=== PATIENT | male | born 1940 | race Hispanic/Latino ===

== ENCOUNTER 2018-10-05 09:09 | Emergency (ER) | payer OTHER, MEDICARE ==
[~2018-10-05 09:09] MED LIST: ALLO100T PO; CLON0.5T12 PO; CLOP75TA14 PO; FERS325 PO; INSU100I21 SQ; ISOS30TA6 PO; LACT10SO9 PO; MEGE400O PO; METO25TA6 PO; NITR0.4T50 SL; ROSU10TA PO; SERT25TA5 PO; SIME180C46 PO; TAMS0.4C32 PO; TERA5CAP4 PO; TERB12CR3 TP; TRAM-355 PO
[2018-10-05 09:32] LABS: BASOPHILS % (AUTO) 0.5 % (0.0-5.0); EOSINOPHILS % (AUTO) 1.6 % (0.0-8.0); HEMATOCRIT 32.4 % (42-54); LYMPHOCYTES % (AUTO) 7.9 % (21.0-51.0); MEAN CORPUSCULAR HEMOGLOBIN 29.3 pg (27.0-33.0); MEAN CORPUSCULAR HGB CONC 34.4 g/dL (32.0-36.0); MEAN CORPUSCULAR VOLUME 85.4 fL (79-99); PLATELET COUNT (AUTO) 191 K/uL (130-400); RED CELL DISTRIBUTION WIDTH 15.3 % (11.0-15.5); WHITE BLOOD COUNT (AUTO) 8.6 K/uL (4.8-10.8)
[2018-10-05 09:45] LABS: POTASSIUM 4.8 mmol/L (3.5-5.1)
[2018-10-05 09:46] LABS: CREATININE 8.1 mg/dL (0.5-1.5)
== END 2018-10-05 10:33 | disposition home or self-care (01) ==
LOC: EDH 09:09
DX: I12.0 Hypertensive chronic kidney disease with stage 5 chronic kidney disease or end stage renal disease (principal); E11.22 Type 2 diabetes mellitus with diabetic chronic kidney disease; N18.6 End stage renal disease; R06.02 Shortness of breath; E78.5 Hyperlipidemia, unspecified; Z99.2 Dependence on renal dialysis; Z90.49 Acquired absence of other specified parts of digestive tract; Z98.890 Other specified postprocedural states
CPT/HCPCS: 36415; 71045; 80048; 85025; 93005

== ENCOUNTER 2019-01-04 12:12 | Inpatient (IN) | payer OTHER, MEDICARE ==
[~2019-01-04] VITALS: Ht 165.1 cm; Wt 61.3 kg
[2019-01-04] MEDS ORDERED: IBUPROFEN 100 MG/5 ML SUSP UDCUP ONE (12:30)
[2019-01-04 12:37] LABS: BASOPHILS % (AUTO) 0.5 % (0.0-5.0); EOSINOPHILS % (AUTO) 1.7 % (0.0-8.0); HEMATOCRIT 35.7 % (42-54); LYMPHOCYTES % (AUTO) 16.9 % (21.0-51.0); MEAN CORPUSCULAR HEMOGLOBIN 29.4 pg (27.0-33.0); MEAN CORPUSCULAR VOLUME 86.6 fL (79-99); NEUTROPHILS % (AUTO) 74.9 % (40.0-77.0); PLATELET COUNT (AUTO) 245 K/uL (130-400); RED BLOOD CELL COUNT(AUTO) 4.12 MIL/uL (4.50-6.20); WHITE BLOOD COUNT (AUTO) 5.5 K/uL (4.8-10.8)
[2019-01-04 12:45] LABS: CREATININE 7.8 mg/dL (0.5-1.5); POTASSIUM 5.9 mmol/L (3.5-5.1)
[2019-01-04 12:50] LABS: ALBUMIN 4.5 g/dL (3.5-5.0); BILIRUBIN,TOTAL 0.6 mg/dL (0.2-1.0); TOTAL PROTEIN, SERUM 8.3 g/dL (6.0-8.3)
[2019-01-04 19:12] LABS: HEMOGLOBIN A1C 7.5 % (4.0-6.0); MAGNESIUM 2.3 mg/dL (1.80-2.40); PHOSPHORUS 5.9 mg/dL (2.5-4.9)
[2019-01-04] MEDS ORDERED: DEXTROSE 50%-WATER 50 ML DISP.SYRIN IV PRN (19:45)
[2019-01-04] MEDS ORDERED: ONDANSETRON HCL 4 MG/2 ML VIAL IV PRN (19:45)
[2019-01-04] MEDS ORDERED: ACETAMINOPHEN 325 MG TAB PO PRN ×2 (19:45)
[2019-01-04] MEDS ORDERED: GLUCAGON 1MG KIT 1 MG ML IM PRN (19:45)
[2019-01-04] MEDS ORDERED: SODIUM POLYSTYRENE SULFONATE 15 GM/60 ML ML PO STA (20:06)
[2019-01-05 05:27] LABS: BASOPHILS % (AUTO) 0.6 % (0.0-5.0); EOSINOPHILS % (AUTO) 3.3 % (0.0-8.0); HEMATOCRIT 34.8 % (42-54); LYMPHOCYTES % (AUTO) 17.1 % (21.0-51.0); MEAN CORPUSCULAR HEMOGLOBIN 29.6 pg (27.0-33.0); MEAN CORPUSCULAR HGB CONC 34.3 g/dL (32.0-36.0); MEAN CORPUSCULAR VOLUME 86.2 fL (79-99); MONOCYTES % (AUTO) 6.3 % (3.0-13.0); NEUTROPHILS % (AUTO) 72.7 % (40.0-77.0); PLATELET COUNT (AUTO) 267 K/uL (130-400); RED BLOOD CELL COUNT(AUTO) 4.03 MIL/uL (4.50-6.20)
[2019-01-05 05:28] LABS: APPEARANCE,URINE Clear (CLEAR); BILIRUBIN,URINE Negative (NEGATIVE); COLOR,URINE Yellow (YELLOW); GLUCOSE, URINE (UA) 250 mg/dL (NEGATIVE); KETONES,URINE Negative (NEGATIVE); LEUKOCYTE ESTERASE ,URINE Trace (NEGATIVE); NITRATE,URINE Negative (NEGATIVE); OCCULT BLOOD,URINE Trace (NEGATIVE); PH,URINE >=9.0 (5.0-8.0); PROTEIN,URINE 300 (NEGATIVE); UROBILINOGEN,URINE 0.2 mg/dL (0.2-1.0)
[2019-01-05 05:36] LABS: AMPHET/METH SCREEN,URINE NEGATIVE (NEGATIVE); BARBITURATE SCREEN, URINE NEGATIVE (NEGATIVE); BENZODIAZEPINES SCREEN,URINE NEGATIVE (NEGATIVE); CANNABINOID SCREEN,URINE NEGATIVE (NEGATIVE); COCAINE SCREEN,URINE NEGATIVE (NEGATIVE); OPIATE SCREEN,URINE NEGATIVE (NEGATIVE); PHENCYCLIDINE SCREEN,URINE NEGATIVE (NEGATIVE)
[2019-01-05 05:40] LABS: BACTERIA,URINE None Seen /HPF (None Seen); MUCUS,URINE Rare LPF (None Seen); RBC,URINE 0-1 /HPF (0-1); SQUAMOUS EPITHELIAL CELL,UR Rare /HPF (0-2); WBC,URINE 0-1 /HPF (0-1)
[2019-01-05 05:57] LABS: ALBUMIN 3.9 g/dL (3.5-5.0); BILIRUBIN,TOTAL 0.7 mg/dL (0.2-1.0); MAGNESIUM 2.2 mg/dL (1.80-2.40); PHOSPHORUS 6.4 mg/dL (2.5-4.9); POTASSIUM 5.8 mmol/L (3.5-5.1); TOTAL PROTEIN, SERUM 7.5 g/dL (6.0-8.3)
[2019-01-05 06:07] LABS: CREATININE 9.1 mg/dL (0.5-1.5)
[2019-01-05] MEDS ORDERED: ENOXAPARIN SODIUM 30 MG/0.3 ML SQ ONE (08:52)
[2019-01-05] MEDS ORDERED: FAMOTIDINE 20MG TAB 20 MG TAB ONE (08:52)
[2019-01-05] MEDS: FAMOTIDINE 20MG TAB 20 MG TAB PO SCH (09:00)
[2019-01-05] MEDS: ENOXAPARIN SODIUM 30 MG/0.3 ML SQ SCH (09:00)
[2019-01-05] MEDS ORDERED: LACTULOSE 20 GM/30 ML UDCUP PO PRN (09:45)
[2019-01-05] MEDS: MEGESTROL 400 MG/10 ML UDCUP PO SCH (10:56)
--- NOTE | 2019-01-05 11:23 | NUR ---
PATIENT PAULA HISTORIAN,ATTEMPTED TO COLLECT INFORMATION FROM PATIENT, HE DOES NOT REMEMBER ANY OF HIS MEDICAL HISTORY. CALLED PATIENTS SISTER SPOKE TO EDENILSON BLANCO STATES SHE WILL BRING PATIENT MEDICATION AND ASSIST WITH PATIENTS HISTORY.
[2019-01-05] MEDS: SEVELAMER HCL 800 MG TABLET PO SCH ×2 (12:00→17:17)
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
[2019-01-05 14:15] VITALS: BP 128/72
[2019-01-05 16:00] VITALS: BP 108/60
[2019-01-05] MEDS: INSULIN HUMULIN R 100 UNIT/ML 3ML SQ SCH ×2 (17:21→20:35)
[2019-01-05 19:45] VITALS: BP 101/54
[2019-01-05] MEDS: TAMSULOSIN HCL 0.4 MG CAP.ER.24H PO SCH (20:35)
[2019-01-05] MEDS: METOPROLOL TARTRATE 25 MG TAB PO SCH (20:35)
[2019-01-06] MEDS ORDERED: NITROGLYCERIN 0.4 MG SL TAB SL PRN (01:00)
--- NOTE | 2019-01-06 01:00 | NUR ---
CHEST PAIN PT C/O CHEST PAIN. INFORMED TAD, ASSOCIATE SOFTWARE DEVELOPMENT ENGINEER OF CHEST PAIN AND VITALS 87/43, HR 72. ORDERED EKG AND CARDIACE ENZYMES
[2019-01-06 01:20] LABS: HEMATOCRIT 36.2 % (42-54); MEAN CORPUSCULAR HEMOGLOBIN 29.1 pg (27.0-33.0); MEAN CORPUSCULAR HGB CONC 33.6 g/dL (32.0-36.0); MEAN CORPUSCULAR VOLUME 86.6 fL (79-99); NUCLEATED RED BLOOD CELLS 0.2 % (0.0-0.19); PLATELET COUNT (AUTO) 264 K/uL (130-400); RED BLOOD CELL COUNT(AUTO) 4.18 MIL/uL (4.50-6.20); RED CELL DISTRIBUTION WIDTH 16.1 % (11.0-15.5); WHITE BLOOD COUNT (AUTO) 5.7 K/uL (4.8-10.8)
[2019-01-06 01:54] LABS: CARBON DIOXIDE 30 mmol/L (21-32); CHLORIDE 95 mmol/L (101-111); CREATININE 7.1 mg/dL (0.5-1.5); GLOMERULAR FILTR. RATE CALC 8 mL/min (>60); GLUCOSE,RANDOM 159 mg/dL (70-105); MYOGLOBIN 1245 ng/mL (10-92); PHOSPHORUS 5.6 mg/dL (2.5-4.9); POTASSIUM 3.9 mmol/L (3.5-5.1); SODIUM SERUM 139 mmol/L (136-145); TROPONIN I < 0.04 ng/mL (0.00-0.06); UREA NITROGEN, BLOOD 41 mg/dL (7-18)
[2019-01-06 01:57] LABS: CREATINE KINASE, TOTAL 486 U/L (21-232)
[2019-01-06 02:08] LABS: EOSINOPHILS % (MANUAL) 3 % (1-6); LYMPHOCYTES % (MANUAL) 29 % (22-44); MAN.DIFF COMMENT-IMPRESSION MANUAL DIFFERENTIAL; MONOCYTES % (MANUAL) 8 % (2-9); SEGMENTED NEUTROPHILS % 60 % (40-70)
[2019-01-06 05:00] VITALS: BP 123/75
[2019-01-06] MEDS: INSULIN HUMULIN R 100 UNIT/ML 3ML SQ SCH ×4 (06:55→21:00)
[2019-01-06] MEDS: MEGESTROL 400 MG/10 ML UDCUP PO SCH (10:11)
[2019-01-06] MEDS: ALLOPURINOL 100 MG TABLET PO SCH (10:12)
[2019-01-06] MEDS: SEVELAMER HCL 800 MG TABLET PO SCH ×3 (10:13→16:17)
[2019-01-06] MEDS: METOPROLOL TARTRATE 25 MG TAB PO SCH ×2 (10:13→21:36)
[2019-01-06] MEDS: CLOPIDOGREL BISULFATE 75 MG TAB PO SCH (10:13)
[2019-01-06] MEDS: FAMOTIDINE 20MG TAB 20 MG TAB PO SCH (10:13)
[2019-01-06] MEDS: SERTRALINE HCL 50 MG TABLET PO SCH (10:14)
[2019-01-06] MEDS: ENOXAPARIN SODIUM 30 MG/0.3 ML SQ SCH (10:18)
[2019-01-06 12:00] VITALS: BP 96/53
--- NOTE | 2019-01-06 15:39 | NUR ---
CM Note: Declined SNF placement CM met with pt and sister, discussed MD pineda for short term placement rehab, pt ambulated does not qualify for rehab. Pt declined placement, stated wants to go home, he needs to go to dialysis every MWF. As per sister daughter(pt hilda) will assist with transportation once pt stable. Primary nurse aware. CM to cont to follow up.
--- NOTE | 2019-01-06 15:41 | NUR ---
CM Note: Spoke to pt spouse CM called spouse on facesheet Marifer Singh , discussed recs for short term rehab, aware pt does not qualify for short term rehab for now pt ambulates independently. As per spouse she is in [place] now and with pt spouse stated, "I'm not going back to home, I don't want anything to do with him." Informed spouse she is the closest next of kin, will need to make decisions. Spouse declined to make decision, stated "he can do whatever he wants to do." Primary nurse aware. CM to cont to follow up.
[2019-01-06 16:00] VITALS: BP 97/59
--- NOTE | 2019-01-06 16:24 | NUR ---
RD Notification Patient tolerating 75gm CCD with no report of GI distress and PO intake at 100%. Rec to add Renal Dialysis Diet modifier secondary to ESRD. Patient LBM 01/06/19. Patient monitored labs: Glu 172, Cl 95, BUN 41, Cr 7.1, GFR 8, P 5.6, TCK 486, Alb 3.9. RD to continue to monitor. Please notify RD as nutritional concerns arise. Thank you.
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
[2019-01-06 19:40] VITALS: BP 128/72
[2019-01-06] MEDS: TAMSULOSIN HCL 0.4 MG CAP.ER.24H PO SCH (21:36)
[2019-01-06 23:38] VITALS: BP 112/68
[2019-01-07 04:54] LABS: BASOPHILS % (AUTO) 0.6 % (0.0-5.0); EOSINOPHILS % (AUTO) 2.6 % (0.0-8.0); HEMATOCRIT 33.2 % (42-54); LYMPHOCYTES % (AUTO) 27.9 % (21.0-51.0); MEAN CORPUSCULAR HEMOGLOBIN 29.6 pg (27.0-33.0); MEAN CORPUSCULAR HGB CONC 34.3 g/dL (32.0-36.0); MEAN CORPUSCULAR VOLUME 86.1 fL (79-99); MONOCYTES % (AUTO) 9.5 % (3.0-13.0); NEUTROPHILS % (AUTO) 59.4 % (40.0-77.0); NUCLEATED RED BLOOD CELLS 0.1 % (0.0-0.19); PLATELET COUNT (AUTO) 262 K/uL (130-400); RED BLOOD CELL COUNT(AUTO) 3.85 MIL/uL (4.50-6.20); WHITE BLOOD COUNT (AUTO) 4.8 K/uL (4.8-10.8)
[2019-01-07 05:00] VITALS: BP 101/64
[2019-01-07 05:04] LABS: POTASSIUM 4.6 mmol/L (3.5-5.1)
[2019-01-07 05:08] LABS: CREATININE 9.9 mg/dL (0.5-1.5)
[2019-01-07] MEDS: INSULIN HUMULIN R 100 UNIT/ML 3ML SQ SCH ×4 (05:24→21:00)
[2019-01-07 07:30] VITALS: BP 123/63
[2019-01-07] MEDS: SEVELAMER HCL 800 MG TABLET PO SCH ×3 (08:00→16:09)
[2019-01-07] MEDS: CLOPIDOGREL BISULFATE 75 MG TAB PO SCH (09:00)
[2019-01-07] MEDS: METOPROLOL TARTRATE 25 MG TAB PO SCH ×2 (09:00→22:12)
--- NOTE | 2019-01-07 10:10 | NUR ---
MMSE Sw met with pt who was awake and alert, waiting for dialysis treatment to be set up in room. Sw attempted to complete a MMSE on pt. Pt has a second grade education and is extremely hard of hearing. Pt states he has been her 3 weeks and is not sure of date, year or month. was able to tell that he was at the hospital in [place] in room 315. and was not able to spell word asked, he was able to repeat 2 or 3 words that were asked of him. Pt was not able to complete any of tasks asked of him. Pt did tell me that he needed me to get him a new provider. When I asked about Marifer Singh, pt admitted that she lived with him and assisted him with ADLS and home management. Pt denied that he ran her out of the house. Pt states he will be going to sister's house in [place] at discharge
[2019-01-07] MEDS: SERTRALINE HCL 50 MG TABLET PO SCH (10:19)
[2019-01-07] MEDS: ALLOPURINOL 100 MG TABLET PO SCH (10:19)
[2019-01-07] MEDS: FAMOTIDINE 20MG TAB 20 MG TAB PO SCH (10:19)
[2019-01-07] MEDS: MEGESTROL 400 MG/10 ML UDCUP PO SCH (10:19)
[2019-01-07] MEDS: ENOXAPARIN SODIUM 30 MG/0.3 ML SQ SCH (10:24)
[2019-01-07 11:00] VITALS: BP 126/63
--- NOTE | 2019-01-07 12:16 | NUR ---
PER ADMISSION DATABASE, PT HAS ALREADY REC'D FLU SHOT THIS SEASON. Addendum: 01/07/19 at 1218 by RADHA PA RN RN Amended: Links added. Addendum: 01/07/19 at 1318 by RADHA PA RN RN DISCHARGE INTERVENTIONS COMPLETED. ENDORSED TO PRIMARY NURSE GILMAR FOR COMPLETION OF DISCHARGE EDUCATION AND REMOVAL OF PIV
[2019-01-07 16:00] VITALS: BP 100/60
--- NOTE | 2019-01-07 19:00 | NUR ---
FAMILY AT BEDSIDE REFUSING TO TAKE PT HOME. PATIENT DISCHARGED INSTRUCTIONS GIVEN AND SIGNED. FAMILY STATE WE SHOULD SENT HIM TO NURSING, THEY STATE PATIENT IS NOT ALERT AND ORIENTED TO GO HOME ON HIS OWN AND THAT HE WILL . THEY DID NOT WANT TO DISCLOSE THEIR NAMES, THEY PROVIDED A LIST OF CONTACT INFO. SON'S PHONE NUMBER WHO THEY THINK WE SHOULD TALK TO. UCHE BLANCO; [phone] MARY BLANCO; [phone] THEY STATED "JUST CALL CPS ON THE HIM AND WE ARE LEAVING" PATIENT IN WHEELCHAIR. FAMILY AT BEDSIDE WAS INFORMED THAT PATIENT AND CLOSE FAMILY REFUSING TO SEND HIM TO JAIL.
--- NOTE | 2019-01-07 19:30 | NUR ---
LURDES BECERRIL AWARE OF FAMILY DILEMMA
--- NOTE | 2019-01-07 19:50 | NUR ---
Received report from dayshift nurse,pt was supposed to be discharged home,IV was taken out and papers were all signed,apparently family refused to take him home so pt is staying.
[2019-01-07 20:00] VITALS: BP 100/64
--- NOTE | 2019-01-07 20:10 | NUR ---
Pt. agreed to stay however refused to have IV insertion.Pt. is awake and coherent denies any discomfort at this time.
--- NOTE | 2019-01-07 22:00 | NUR ---
received call from son and informed pt is still here and nobody is going to take care of him at home.He said he should be the one to be called and decide where his father is going ,he prefers he goes to the nursing facility.Informed him things will be decided tomorrow since case mgt is already notified and made aware .
[2019-01-07] MEDS: TAMSULOSIN HCL 0.4 MG CAP.ER.24H PO SCH (22:12)
[2019-01-08] VITALS: BP 119/71
[2019-01-08 04:00] VITALS: BP 123/74
[2019-01-08 05:04] LABS: BASOPHILS % (AUTO) 0.5 % (0.0-5.0); EOSINOPHILS % (AUTO) 1.6 % (0.0-8.0); HEMATOCRIT 36.3 % (42-54); LYMPHOCYTES % (AUTO) 24.8 % (21.0-51.0); MEAN CORPUSCULAR HEMOGLOBIN 29.6 pg (27.0-33.0); MEAN CORPUSCULAR HGB CONC 34.2 g/dL (32.0-36.0); MEAN CORPUSCULAR VOLUME 86.5 fL (79-99); NEUTROPHILS % (AUTO) 62.1 % (40.0-77.0); PLATELET COUNT (AUTO) 257 K/uL (130-400); RED CELL DISTRIBUTION WIDTH 15.8 % (11.0-15.5); WHITE BLOOD COUNT (AUTO) 4.7 K/uL (4.8-10.8)
[2019-01-08 05:17] LABS: CREATININE 7.1 mg/dL (0.5-1.5); POTASSIUM 4.2 mmol/L (3.5-5.1)
[2019-01-08] MEDS: INSULIN HUMULIN R 100 UNIT/ML 3ML SQ SCH ×2 (06:13→12:55)
[2019-01-08 08:00] VITALS: BP 122/71
[2019-01-08] MEDS: METOPROLOL TARTRATE 25 MG TAB PO SCH (09:27)
[2019-01-08] MEDS: SERTRALINE HCL 50 MG TABLET PO SCH (09:27)
[2019-01-08] MEDS: CLOPIDOGREL BISULFATE 75 MG TAB PO SCH (09:27)
[2019-01-08] MEDS: ALLOPURINOL 100 MG TABLET PO SCH (09:27)
[2019-01-08] MEDS: SEVELAMER HCL 800 MG TABLET PO SCH ×2 (09:27→12:54)
[2019-01-08] MEDS: FAMOTIDINE 20MG TAB 20 MG TAB PO SCH (09:27)
[2019-01-08] MEDS: MEGESTROL 400 MG/10 ML UDCUP PO SCH (09:28)
[2019-01-08] MEDS: ENOXAPARIN SODIUM 30 MG/0.3 ML SQ SCH (09:32)
--- NOTE | 2019-01-08 11:00 | NUR ---
DC In earlier to speak w pt again regarding poss SNF, he is up walking in the room independently. Pt refuses stating that he is going home at dc. Primary nurse present in room at this time. Addendum: 01/08/19 at 1703 by LANA HUERTA CM While in patients room, pt called dtr Lorenza @ [phone], CM was able to speak w her to discuss dc order written by yesterday. Per Lorenza, none of the family members want to be involved w pt. Lorenza mentions that she is out of town and unable to assist. Informed Lorenza that pt has not been deemed incompetent and is able to refuse SNF placement. Lorenza was informed that pt had been cleared for discharge since yesterday by . Per Lorenza there is no one avail to come pick pt up. She was informed that in the past if patients do not have transport they can be sent home by taxi. She mentions that this would have to be the way pt gets home. Discussed w pt Area Aging, states ex was his provider, informed would need to try and obtain new provider if she no longer was going to assist him.
[2019-01-08 12:00] VITALS: BP 104/57
--- NOTE | 2019-01-08 13:30 | NUR ---
STRUCTURAL ENGINEERING TECHNICIAN NOTIFIED TO CONTACT TAXI TO TRANSPORT PATIENT HOME. PATIENT STATES HE WANTS TO GO HOME AND NO JAIL HOME. FAMILY MEMBERS NOTIFIED BY ORE SAMPLER LANA ECHEVARRIA. DISCHARGE PAPERS GIVEN TO PATIENT and to follow UP WITH NEPHROLOGY ON THURSDAY FOR DIALYSIS. ALL QUESTIONS ANSWERED. PATIENT WITHOUT IV AT THIS TIME.
--- NOTE | 2019-01-08 16:45 | NUR ---
APS: Called placed to APS Hotline, spoke gutierrez Rico ID [id number], . Informed regarding pt refusing SNF @ dc and family refusing to assist him at dc. see previous notes.
== END 2019-01-08 13:19 | disposition home or self-care (01) | DRG 70 ==
LOC: EDH 12:12 → EDHIP 18:42 → 3CH 01-05 14:10
PROVIDERS: ADMIT Internal Medicine; ATTEND Internal Medicine
PROC: 5A1D70Z Performance of Urinary Filtration, Intermittent, Less than 6 Hours Per Day (ICD-10-PCS; principal; 2019-01-05)
PROC: 5A1D70Z Performance of Urinary Filtration, Intermittent, Less than 6 Hours Per Day (ICD-10-PCS; 2019-01-07)
DX: G93.49 Other encephalopathy (principal); N18.6 End stage renal disease; N17.9 Acute kidney failure, unspecified; I12.0 Hypertensive chronic kidney disease with stage 5 chronic kidney disease or end stage renal disease; G93.41 Metabolic encephalopathy; E87.5 Hyperkalemia; F03.90 Unspecified dementia, unspecified severity, without behavioral disturbance, psychotic disturbance, mood disturbance, and anxiety; N40.0 Benign prostatic hyperplasia without lower urinary tract symptoms; E78.00 Pure hypercholesterolemia, unspecified; E11.22 Type 2 diabetes mellitus with diabetic chronic kidney disease; E11.21 Type 2 diabetes mellitus with diabetic nephropathy; H91.90 Unspecified hearing loss, unspecified ear; E78.5 Hyperlipidemia, unspecified; D64.9 Anemia, unspecified; I25.10 Atherosclerotic heart disease of native coronary artery without angina pectoris; Z99.2 Dependence on renal dialysis; Z83.3 Family history of diabetes mellitus; Z82.5 Family history of asthma and other chronic lower respiratory diseases; Z82.0 Family history of epilepsy and other diseases of the nervous system; Z82.49 Family history of ischemic heart disease and other diseases of the circulatory system; Z90.49 Acquired absence of other specified parts of digestive tract; Z91.19 Patient's noncompliance with other medical treatment and regimen; Z82.3 Family history of stroke; Z91.15 Patient's noncompliance with renal dialysis
CPT/HCPCS: 36415; 70450; 71045; 80048; 80053; 80305; 81001; 82140; 82550; 82948; 83036; 83735; 83874; 84100; 84484; 85025; 90935; 93005; G0378; G0480; J1650; J1815

== ENCOUNTER 2019-01-21 10:30 | Inpatient (IN) | payer OTHER, MEDICARE ==
[~2019-01-21] VITALS: Ht 160 cm; Wt 56.4 kg
[~2019-01-21 10:30] MED LIST changes: -ROSU10TA PO; +ROSU10TA22 PO
[2019-01-21 11:27] LABS: BASOPHILS % (AUTO) 0.5 % (0.0-5.0); EOSINOPHILS % (AUTO) 2.2 % (0.0-8.0); HEMATOCRIT 34.1 % (42-54); LYMPHOCYTES % (AUTO) 21.9 % (21.0-51.0); MEAN CORPUSCULAR HEMOGLOBIN 29.6 pg (27.0-33.0); MEAN CORPUSCULAR VOLUME 87.3 fL (79-99); MONOCYTES % (AUTO) 5.9 % (3.0-13.0); NEUTROPHILS % (AUTO) 69.5 % (40.0-77.0); NUCLEATED RED BLOOD CELLS 0.1 % (0.0-0.19); PLATELET COUNT (AUTO) 201 K/uL (130-400); RED BLOOD CELL COUNT(AUTO) 3.91 MIL/uL (4.50-6.20); WHITE BLOOD COUNT (AUTO) 3.6 K/uL (4.8-10.8)
[2019-01-21 11:40] LABS: AMMONIA 17 umol/L (11-32); CREATINE KINASE, TOTAL 130 U/L (21-232)
[2019-01-21 11:41] LABS: ALBUMIN 3.4 g/dL (3.5-5.0); BILIRUBIN,TOTAL 1.3 mg/dL (0.2-1.0); POTASSIUM 5.5 mmol/L (3.5-5.1); TOTAL PROTEIN, SERUM 6.8 g/dL (6.0-8.3)
[2019-01-21 11:46] LABS: INR 0.97 (0.85-1.15); PARTIAL THROMBOPLASTIN TIME 27.8 SEC (26.3-35.5); PROTHROMBIN TIME 10.2 SEC (9.6-11.6)
[2019-01-21 11:49] LABS: CREATININE 14.2 mg/dL (0.5-1.5)
[2019-01-21] MEDS ORDERED: SODIUM POLYSTYRENE SULFONATE 15 GM/60 ML ML ONE (12:31)
[2019-01-21] MEDS ORDERED: HYDRALAZINE HCL 20 MG/ML VIAL IV PRN (14:45)
[2019-01-21] MEDS ORDERED: ONDANSETRON HCL 4 MG/2 ML VIAL IV PRN (14:45)
[2019-01-21] MEDS ORDERED: ACETAMINOPHEN 325 MG TAB PO PRN ×2 (14:45→20:00)
[2019-01-21] MEDS ORDERED: MORPHINE SULFATE 2 MG/ML 1ML SYG IV PRN (14:45)
[2019-01-21] MEDS ORDERED: LEVOFLOXACIN 500 MG/D5W 100 ML 100 ML IV ONE (15:00)
[2019-01-21] MEDS ORDERED: RENAL DOSE IV SCH (15:15)
[2019-01-21 15:24] LABS: HEMOGLOBIN A1C 7.6 % (4.0-6.0)
[2019-01-21 15:35] VITALS: BP 117/71
[2019-01-21] MEDS: INSULIN HUMULIN R 100 UNIT/ML 3ML SQ SCH ×2 (16:30→21:00)
[2019-01-21] MEDS ORDERED: LIDOCAINE HCL 2% JELLY 5 ML TP SCH (16:30)
[2019-01-21] MEDS ORDERED: TRAZ-187 PO (16:32)
[2019-01-21] MEDS ORDERED: DONE10TA36 PO (16:32)
[2019-01-21] MEDS ORDERED: SOLI5 PO (16:36)
[2019-01-21] MEDS ORDERED: NAPR-1180 PO (16:40)
[2019-01-21] MEDS ORDERED: LINA145C PO (16:40)
[2019-01-21] MEDS ORDERED: LIDOCAINE/PRILOCAINE CREAM 5GM TUBE TP SCH (18:47)
[2019-01-21 19:55] VITALS: BP 112/70
[2019-01-21] MEDS ORDERED: NITROGLYCERIN 0.4 MG SL TAB SL PRN (20:00)
[2019-01-21] MEDS ORDERED: LIDOCAINE HCL-MPF 1% 2ML VIAL IJ PRN (20:00)
[2019-01-21] MEDS ORDERED: 0.9% SODIUM CHLORIDE 1000 ML IV BAG IV PRN (20:00)
[2019-01-21] MEDS ORDERED: HEPARIN SODIUM 5000UNIT/ML 1ML VIAL IJ PRN (20:00)
[2019-01-21] MEDS ORDERED: SODIUM CHLORIDE 0.9% 1000ML 1,000 ML IV PRN (20:00)
[2019-01-21] MEDS ORDERED: LEVOFLOXACIN 500 MG/D5W 100 ML 100 ML ONE (21:05)
[2019-01-21 23:47] VITALS: BP 101/63
[2019-01-22 03:50] VITALS: BP 110/68
[2019-01-22 04:44] LABS: HEMATOCRIT 30.4 % (42-54); MEAN CORPUSCULAR HEMOGLOBIN 29.8 pg (27.0-33.0); MEAN CORPUSCULAR VOLUME 85.4 fL (79-99); NUCLEATED RED BLOOD CELLS 0.2 % (0.0-0.19); PLATELET COUNT (AUTO) 180 K/uL (130-400); RED BLOOD CELL COUNT(AUTO) 3.56 MIL/uL (4.50-6.20); RED CELL DISTRIBUTION WIDTH 15.2 % (11.0-15.5); WHITE BLOOD COUNT (AUTO) 2.7 K/uL (4.8-10.8)
[2019-01-22 05:05] LABS: POTASSIUM 4.1 mmol/L (3.5-5.1)
[2019-01-22 05:09] LABS: CREATININE 9.1 mg/dL (0.5-1.5)
[2019-01-22 05:43] LABS: BAND NEUTROPHILS % (MANUAL) 4 % (0-2); BASOPHILS % (MANUAL) 1 % (0-2); EOSINOPHILS % (MANUAL) 2 % (1-6); LYMPHOCYTES % (MANUAL) 32 % (22-44); MONOCYTES % (MANUAL) 9 % (2-9); REACTIVE LYMPHOCYTES 1 % (0-0); SEGMENTED NEUTROPHILS % 51 % (40-70)
[2019-01-22 05:44] LABS: MAN.DIFF COMMENT-IMPRESSION MANUAL DIFFERENTIAL; PLATELET MORPHOLOGY COMMENT ADEQUATE
[2019-01-22] MEDS: INSULIN HUMULIN R 100 UNIT/ML 3ML SQ SCH ×4 (05:56→20:48)
--- NOTE | 2019-01-22 06:20 | NUR ---
Smoking assessment: Pt is poor historian; unable to obtain smoking history. No family present at this time. Addendum: 01/22/19 at 1634 by MEET ADRIAN RT Amended: Links added.
[2019-01-22] MEDS: SODIUM CHLORIDE 3% FOR INHALATION 4 ML/AMP VIAL.NEB IH SCH ×4 (06:23→23:23)
[2019-01-22 08:00] VITALS: BP 119/70
[2019-01-22] MEDS: FAMOTIDINE/PF 20 MG/2 ML VIAL IV SCH (09:00)
[2019-01-22 12:00] VITALS: BP 108/60
[2019-01-22] MEDS ORDERED: NITROGLYCERIN 0.4 MG SL TAB SL PRN (12:30)
[2019-01-22] MEDS ORDERED: CLONAZEPAM 0.5 MG TABLET PO PRN (12:30)
[2019-01-22] MEDS ORDERED: TRAMADOL /APAP 37.5MG/325MG TAB PO PRN (12:30)
[2019-01-22] MEDS ORDERED: LACTULOSE 20 GM/30 ML UDCUP PO PRN (12:30)
[2019-01-22] MEDS: ALLOPURINOL 100 MG TABLET PO SCH (12:32)
[2019-01-22] MEDS: MEGESTROL 400 MG/10 ML UDCUP PO SCH (12:34)
[2019-01-22] MEDS: ***HM***(Solifenacin Succinate (Vesicare) 5 MG) PO SCH (12:39)
[2019-01-22 16:00] VITALS: BP 109/74
[2019-01-22] MEDS: ATORVASTATIN CALCIUM 20 MG TABLET PO SCH (20:45)
[2019-01-22] MEDS: TAMSULOSIN HCL 0.4 MG CAP.ER.24H PO SCH (20:45)
[2019-01-22] MEDS: DONEPEZIL HCL 5 MG TAB PO SCH (20:45)
[2019-01-22] MEDS: METOPROLOL TARTRATE 25 MG TAB PO SCH (20:45)
[2019-01-22] MEDS: TRAZODONE HCL 100 MG TABLET PO SCH (20:46)
[2019-01-22 21:50] VITALS: BP 130/82
[2019-01-22] MEDS ORDERED: RENAL DOSE IV PRN (23:45)
[2019-01-23 00:26] VITALS: BP 122/72
[2019-01-23 04:00] VITALS: BP 118/60
[2019-01-23] MEDS: SODIUM CHLORIDE 3% FOR INHALATION 4 ML/AMP VIAL.NEB IH SCH ×4 (05:07→23:37)
[2019-01-23 05:14] LABS: HEMATOCRIT 28.8 % (42-54); MEAN CORPUSCULAR HEMOGLOBIN 29.3 pg (27.0-33.0); MEAN CORPUSCULAR HGB CONC 34.2 g/dL (32.0-36.0); MEAN CORPUSCULAR VOLUME 85.6 fL (79-99); PLATELET COUNT (AUTO) 188 K/uL (130-400); RED BLOOD CELL COUNT(AUTO) 3.36 MIL/uL (4.50-6.20); RED CELL DISTRIBUTION WIDTH 15.3 % (11.0-15.5); WHITE BLOOD COUNT (AUTO) 2.6 K/uL (4.8-10.8)
[2019-01-23 05:23] LABS: POTASSIUM 4.5 mmol/L (3.5-5.1)
[2019-01-23 05:24] LABS: CREATININE 11.5 mg/dL (0.5-1.5)
[2019-01-23] MEDS: INSULIN HUMULIN R 100 UNIT/ML 3ML SQ SCH ×4 (07:30→20:27)
[2019-01-23 08:00] VITALS: BP 141/66
[2019-01-23] MEDS: TERAZOSIN HCL 5 MG CAPSULE PO SCH (08:44)
[2019-01-23] MEDS: METOPROLOL TARTRATE 25 MG TAB PO SCH ×2 (08:44→22:06)
[2019-01-23] MEDS: FAMOTIDINE/PF 20 MG/2 ML VIAL IV SCH (08:44)
[2019-01-23] MEDS: MEGESTROL 400 MG/10 ML UDCUP PO SCH (08:44)
[2019-01-23] MEDS: ALLOPURINOL 100 MG TABLET PO SCH (08:44)
[2019-01-23] MEDS: ISOSORBIDE MONO 30MG TAB SR PO SCH (08:44)
[2019-01-23] MEDS: FERROUS SULFATE 325 MG TABLET.DR PO SCH (08:44)
[2019-01-23] MEDS: SERTRALINE HCL 50 MG TABLET PO SCH (08:45)
[2019-01-23] MEDS: ***HM***(Solifenacin Succinate (Vesicare) 5 MG) PO SCH (08:49)
[2019-01-23] MEDS ORDERED: OSELTAMIVIR PHOSPHATE 75 MG CAP PO SCH ×2 (09:00)
[2019-01-23] MEDS ORDERED: OSELTAMIVIR PHOSPHATE PO SCH ×2 (09:00)
[2019-01-23 12:00] VITALS: BP 91/55
[2019-01-23] MEDS ORDERED: COMPOUND PO MISCELLANEOUS 1 EACH MISC MISC PRN (13:30)
[2019-01-23] MEDS: LEVOFLOXACIN 250 MG/D5W 50ML 50 ML IVPB SCH (14:37)
[2019-01-23] MEDS: OSELTAMIVIR PHOSPHATE 300 MG, COMPOUNDING VEHICLE SF NO.9 50 ML PO SCH ×2 (14:40)
[2019-01-23 16:00] VITALS: BP 119/67
--- NOTE | 2019-01-23 18:04 | NUR ---
cm note met with patient and very hard of hearing, also appears confused, unable to answer questions. attempted to discussed dc planning regarding snf, but pt unable to answer. call made to listed next of kin wilder adame- sister, per sister states pt resides alone, due to her spouse and daughter frank have left him and no longer live with him. and states that pt does have 2 sons from [place], that she has spoken to, to try and get them to assist, and states they have plans to come and visit him. she will look for phone #s for them and provide info. states that pt has a provider 5hrs daily. and is supposed to go to dialysis 3 x week. but hasnt been going, because he tells provider he doesnt want to go "today" asked sister regarding snf placement as per md recommendation. states she is familiar with [facility], but she is not sure pt will agree to snf, because will continue to followup with family as available. Addendum: 01/23/19 at 1809 by JAMAAL LOBO CM Amended: Links added.
[2019-01-23] MEDS ORDERED: LORAZEPAM 2 MG/ML 1 ML VIAL IM SCH (19:00)
[2019-01-23] MEDS ORDERED: LORAZEPAM 2 MG/ML 1 ML VIAL ONE (19:01)
[2019-01-23 20:00] VITALS: BP 102/63
[2019-01-23] MEDS: ATORVASTATIN CALCIUM 20 MG TABLET PO SCH (22:06)
[2019-01-23] MEDS: DONEPEZIL HCL 5 MG TAB PO SCH (22:06)
[2019-01-23] MEDS: TAMSULOSIN HCL 0.4 MG CAP.ER.24H PO SCH (22:06)
[2019-01-23] MEDS: TRAZODONE HCL 100 MG TABLET PO SCH (22:07)
[2019-01-24 03:58] VITALS: BP 135/81
[2019-01-24 04:37] LABS: BASOPHILS % (AUTO) 0.4 % (0.0-5.0); EOSINOPHILS % (AUTO) 0.9 % (0.0-8.0); HEMATOCRIT 28.6 % (42-54); LYMPHOCYTES % (AUTO) 30.6 % (21.0-51.0); MEAN CORPUSCULAR HEMOGLOBIN 29.7 pg (27.0-33.0); MEAN CORPUSCULAR HGB CONC 34.6 g/dL (32.0-36.0); MEAN CORPUSCULAR VOLUME 85.9 fL (79-99); MONOCYTES % (AUTO) 6.7 % (3.0-13.0); NEUTROPHILS % (AUTO) 61.4 % (40.0-77.0); PLATELET COUNT (AUTO) 181 K/uL (130-400); RED BLOOD CELL COUNT(AUTO) 3.32 MIL/uL (4.50-6.20); RED CELL DISTRIBUTION WIDTH 15.1 % (11.0-15.5); WHITE BLOOD COUNT (AUTO) 3.2 K/uL (4.8-10.8)
[2019-01-24 04:57] LABS: POTASSIUM 5.2 mmol/L (3.5-5.1)
[2019-01-24 05:14] LABS: CREATININE 13.7 mg/dL (0.5-1.5)
[2019-01-24] MEDS: INSULIN HUMULIN R 100 UNIT/ML 3ML SQ SCH ×3 (06:49→21:00)
[2019-01-24] MEDS: SODIUM CHLORIDE 3% FOR INHALATION 4 ML/AMP VIAL.NEB IH SCH ×4 (07:12→23:37)
[2019-01-24 07:58] VITALS: BP 118/67
[2019-01-24] MEDS: FAMOTIDINE/PF 20 MG/2 ML VIAL IV SCH (09:00)
[2019-01-24] MEDS: ***HM***(Solifenacin Succinate (Vesicare) 5 MG) PO SCH (09:00)
[2019-01-24] MEDS: MEGESTROL 400 MG/10 ML UDCUP PO SCH (09:00)
--- NOTE | 2019-01-24 09:44 | NUR ---
SON / APS Sw recd order for comfort measure/ hospice for pt. BOO left message for pt's son Reynaldo Jr - [phone]. Waiting for response. Boo called local APS office. Pt has open case and case wker is Leticia Evans [phone]. Boo left message. Waiting for response
[2019-01-24] MEDS: ALLOPURINOL 100 MG TABLET PO SCH (10:00)
[2019-01-24] MEDS: TERAZOSIN HCL 5 MG CAPSULE PO SCH (10:00)
[2019-01-24] MEDS: SERTRALINE HCL 50 MG TABLET PO SCH (10:00)
[2019-01-24] MEDS: FERROUS SULFATE 325 MG TABLET.DR PO SCH (10:00)
[2019-01-24] MEDS: METOPROLOL TARTRATE 25 MG TAB PO SCH ×2 (10:00→22:17)
[2019-01-24] MEDS: ISOSORBIDE MONO 30MG TAB SR PO SCH (10:00)
--- NOTE | 2019-01-24 10:20 | NUR ---
SON REYNALDO BLANCO [phone] Sw recd call back from pt's son Reynaldo. Son was aware that pt was admitted again by pt's sister. Son states that he has spoken to his father yesterday and father states he is feeling better. Son informed of MD recommendations for SNF vs Hospice. Son states that he and siblings would want pt to go to SNF rather than Hospice at this time. Son states he would like to see if pt would improve with dialysis treatments. Discussed pt's non complaisance and also pt's willingness to stay at [place] if family sent him there. Son states this would give son time to get down here and try and figure out what to do next. Son states his vacation requests have been denied and he is waiting for approval. Discussed code status as well. Son states he would not want pt resuscitated but will discuss this with siblings and let us know. SOn wanting referral made to SNF. CM informed. .
[2019-01-24 11:48] VITALS: BP 108/59
[2019-01-24] MEDS ORDERED: LIDOCAINE/PRILOCAINE CREAM 30 GM TUBE TP SCH (12:15)
[2019-01-24 16:49] VITALS: BP 118/62
[2019-01-24] MEDS: DONEPEZIL HCL 5 MG TAB PO SCH (22:18)
[2019-01-24] MEDS: TRAZODONE HCL 100 MG TABLET PO SCH (22:18)
[2019-01-24] MEDS: TAMSULOSIN HCL 0.4 MG CAP.ER.24H PO SCH (22:18)
[2019-01-24] MEDS: ATORVASTATIN CALCIUM 20 MG TABLET PO SCH (22:18)
[2019-01-24 22:51] VITALS: BP 121/64
[2019-01-25 00:10] VITALS: BP 95/52
[2019-01-25 04:33] VITALS: BP 97/59
[2019-01-25 04:54] LABS: BASOPHILS % (AUTO) 0.5 % (0.0-5.0); LYMPHOCYTES % (AUTO) 36.4 % (21.0-51.0); MEAN CORPUSCULAR HEMOGLOBIN 30.5 pg (27.0-33.0); MEAN CORPUSCULAR HGB CONC 35.9 g/dL (32.0-36.0); MEAN CORPUSCULAR VOLUME 84.9 fL (79-99); NEUTROPHILS % (AUTO) 55.1 % (40.0-77.0); NUCLEATED RED BLOOD CELLS 0.1 % (0.0-0.19); PLATELET COUNT (AUTO) 175 K/uL (130-400); RED BLOOD CELL COUNT(AUTO) 3.41 MIL/uL (4.50-6.20); RED CELL DISTRIBUTION WIDTH 14.8 % (11.0-15.5); WHITE BLOOD COUNT (AUTO) 2.7 K/uL (4.8-10.8)
[2019-01-25 05:44] LABS: BAND NEUTROPHILS % (MANUAL) 1 % (0-2); EOSINOPHILS % (MANUAL) 1 % (1-6); LYMPHOCYTES % (MANUAL) 51 % (22-44); MONOCYTES % (MANUAL) 3 % (2-9); SEGMENTED NEUTROPHILS % 44 % (40-70)
[2019-01-25 05:45] LABS: MAN.DIFF COMMENT-IMPRESSION MANUAL DIFFERENTIAL
[2019-01-25 05:46] LABS: PLATELET MORPHOLOGY COMMENT ADEQUATE
[2019-01-25] MEDS: INSULIN HUMULIN R 100 UNIT/ML 3ML SQ SCH ×4 (05:50→21:00)
[2019-01-25] MEDS: SODIUM CHLORIDE 3% FOR INHALATION 4 ML/AMP VIAL.NEB IH SCH ×3 (06:28→19:23)
[2019-01-25 07:00] VITALS: BP 118/55
[2019-01-25] MEDS: ***HM***(Solifenacin Succinate (Vesicare) 5 MG) PO SCH (09:00)
[2019-01-25] MEDS: FAMOTIDINE/PF 20 MG/2 ML VIAL IV SCH (09:00)
[2019-01-25] MEDS: TERAZOSIN HCL 5 MG CAPSULE PO SCH (09:08)
[2019-01-25] MEDS: FERROUS SULFATE 325 MG TABLET.DR PO SCH (09:09)
[2019-01-25] MEDS: MEGESTROL 400 MG/10 ML UDCUP PO SCH (09:09)
[2019-01-25] MEDS: ALLOPURINOL 100 MG TABLET PO SCH (09:09)
[2019-01-25] MEDS: ISOSORBIDE MONO 30MG TAB SR PO SCH (09:09)
[2019-01-25] MEDS: METOPROLOL TARTRATE 25 MG TAB PO SCH ×2 (09:09→21:00)
[2019-01-25] MEDS: SERTRALINE HCL 50 MG TABLET PO SCH (09:12)
[2019-01-25 10:18] LABS: HEPATITIS Bs ANTIGEN SCREEN P Negative (Negative)
[2019-01-25 11:07] VITALS: BP 96/58
--- NOTE | 2019-01-25 11:55 | NUR ---
APS Boo recd call from SHIRLEY Lopez. Leticia reports she made a home visit on 01/11. Per Leticia [facility] put new provider in place Provider reported thst pt states he is very lonely and asking her not to leave. Mason feels that [facility] is best place for pt for social interaction and compliance. Leticia has spoken to SOn Reynaldo as well and is aware that son is trying to get down here. Informed Leticia of conversation with son and lack of MD documentation for pt's decision making ability for family to step in as surrogate decision makers. Per Leticia, at her visit, pt was able to answer some questions appropriately, but was confused at times as well. Leticia also agreed that there are many factors that could play a part in pt's inability to answer questions correctly: [place], Dementia, need for dialysis. Sw to f/u and inform Leticia of dcp when known
[2019-01-25] MEDS: OSELTAMIVIR PHOSPHATE 300 MG, COMPOUNDING VEHICLE SF NO.9 50 ML PO SCH ×2 (14:19)
[2019-01-25] MEDS: LEVOFLOXACIN 250 MG/D5W 50ML 50 ML IVPB SCH (14:30)
[2019-01-25 19:51] VITALS: BP 90/50
[2019-01-25] MEDS: ATORVASTATIN CALCIUM 20 MG TABLET PO SCH (21:00)
[2019-01-25] MEDS: TRAZODONE HCL 100 MG TABLET PO SCH (21:00)
[2019-01-25] MEDS: DONEPEZIL HCL 5 MG TAB PO SCH (21:00)
[2019-01-25] MEDS: TAMSULOSIN HCL 0.4 MG CAP.ER.24H PO SCH (21:00)
--- NOTE | 2019-01-25 21:15 | NUR ---
Refused Mediation Patient is refusing to take his night medication. Educated him of what his medications are for and that he needs to take his medication to help him get better but is still refusing to take it. Dana MANCERA and Jerica MANCERA who is the sitter for the night help me to tried to persuade the patient to take his medication but still refusing. Will monitor closely.
[2019-01-25 23:48] VITALS: BP 109/56
[2019-01-26 04:24] VITALS: BP 112/62
[2019-01-26 04:50] LABS: BASOPHILS % (AUTO) 0.4 % (0.0-5.0); EOSINOPHILS % (AUTO) 0.8 % (0.0-8.0); HEMATOCRIT 28.1 % (42-54); LYMPHOCYTES % (AUTO) 29.7 % (21.0-51.0); MEAN CORPUSCULAR HEMOGLOBIN 29.7 pg (27.0-33.0); MEAN CORPUSCULAR HGB CONC 34.6 g/dL (32.0-36.0); MEAN CORPUSCULAR VOLUME 85.7 fL (79-99); MONOCYTES % (AUTO) 6.3 % (3.0-13.0); NEUTROPHILS % (AUTO) 62.8 % (40.0-77.0); PLATELET COUNT (AUTO) 170 K/uL (130-400); RED BLOOD CELL COUNT(AUTO) 3.28 MIL/uL (4.50-6.20); RED CELL DISTRIBUTION WIDTH 14.7 % (11.0-15.5); WHITE BLOOD COUNT (AUTO) 3.6 K/uL (4.8-10.8)
[2019-01-26 05:03] LABS: POTASSIUM 4.2 mmol/L (3.5-5.1)
[2019-01-26 05:07] LABS: CREATININE 10.8 mg/dL (0.5-1.5)
--- NOTE | 2019-01-26 05:09 | NUR ---
Creatinine level Critical creatinine level of 10.8 this am. Patient is on dialysis MWF. consistent from previous results MD duarte
[2019-01-26] MEDS: SODIUM CHLORIDE 3% FOR INHALATION 4 ML/AMP VIAL.NEB IH SCH ×3 (05:42→19:27)
[2019-01-26] MEDS: INSULIN HUMULIN R 100 UNIT/ML 3ML SQ SCH ×3 (06:17→20:47)
[2019-01-26 08:00] VITALS: BP 120/59
[2019-01-26] MEDS: TERAZOSIN HCL 5 MG CAPSULE PO SCH (09:00)
[2019-01-26] MEDS: ***HM***(Solifenacin Succinate (Vesicare) 5 MG) PO SCH (09:00)
[2019-01-26] MEDS: METOPROLOL TARTRATE 25 MG TAB PO SCH ×2 (09:00→20:46)
[2019-01-26] MEDS: ISOSORBIDE MONO 30MG TAB SR PO SCH (09:00)
[2019-01-26] MEDS: FAMOTIDINE/PF 20 MG/2 ML VIAL IV SCH (09:00)
[2019-01-26] MEDS: MEGESTROL 400 MG/10 ML UDCUP PO SCH (10:25)
[2019-01-26] MEDS: ALLOPURINOL 100 MG TABLET PO SCH (10:25)
[2019-01-26] MEDS: SERTRALINE HCL 50 MG TABLET PO SCH (10:25)
[2019-01-26] MEDS: FERROUS SULFATE 325 MG TABLET.DR PO SCH (10:25)
[2019-01-26 11:00] VITALS: BP 92/56
--- NOTE | 2019-01-26 11:47 | NUR ---
YADIEN - LOS X 5 Patient with Renal Dialysis Diet with no report of GI distress and PO intake at 100%. Patient with LBM 01/23/19. Patient monitored labs: BUN 64, Cr 10.8, GFR 5, Cl 97, Ca 7.5, Alb 3.4. RD to continue to monitor. Please notify NAE as nutritional concerns arise. Thank you. Addendum: 01/26/19 at [address] Amended: Links added.
--- NOTE | 2019-01-26 14:05 | NUR ---
PT FINISHED DIALYSIS NO FLUID WAS ABLE TO BE REMOVED PT'S VITAL SINGS STABLE PT DENIES SOB OR CHEST PAIN
[2019-01-26 16:00] VITALS: BP 108/59
[2019-01-26 19:00] VITALS: BP 120/61
[2019-01-26] MEDS: ATORVASTATIN CALCIUM 20 MG TABLET PO SCH (20:46)
[2019-01-26] MEDS: DONEPEZIL HCL 5 MG TAB PO SCH (20:46)
[2019-01-26] MEDS: TRAZODONE HCL 100 MG TABLET PO SCH (20:46)
[2019-01-26] MEDS: TAMSULOSIN HCL 0.4 MG CAP.ER.24H PO SCH (20:46)
[2019-01-27] VITALS: BP 101/55
[2019-01-27] MEDS: SODIUM CHLORIDE 3% FOR INHALATION 4 ML/AMP VIAL.NEB IH SCH ×5 (00:17→23:22)
[2019-01-27 04:00] VITALS: BP 114/58
[2019-01-27 04:27] LABS: BASOPHILS % (AUTO) 0.2 % (0.0-5.0); EOSINOPHILS % (AUTO) 0.6 % (0.0-8.0); HEMATOCRIT 28.2 % (42-54); LYMPHOCYTES % (AUTO) 23.6 % (21.0-51.0); MEAN CORPUSCULAR HEMOGLOBIN 30.6 pg (27.0-33.0); MEAN CORPUSCULAR VOLUME 84.8 fL (79-99); MONOCYTES % (AUTO) 5.7 % (3.0-13.0); NEUTROPHILS % (AUTO) 69.9 % (40.0-77.0); NUCLEATED RED BLOOD CELLS 0.1 % (0.0-0.19); PLATELET COUNT (AUTO) 167 K/uL (130-400); RED BLOOD CELL COUNT(AUTO) 3.32 MIL/uL (4.50-6.20); RED CELL DISTRIBUTION WIDTH 14.7 % (11.0-15.5); WHITE BLOOD COUNT (AUTO) 4.1 K/uL (4.8-10.8)
[2019-01-27 04:59] LABS: POTASSIUM 4.3 mmol/L (3.5-5.1)
[2019-01-27] MEDS: INSULIN HUMULIN R 100 UNIT/ML 3ML SQ SCH ×4 (07:05→21:00)
[2019-01-27 08:00] VITALS: BP 117/56
[2019-01-27] MEDS: METOPROLOL TARTRATE 25 MG TAB PO SCH ×2 (09:00→21:00)
[2019-01-27] MEDS: ***HM***(Solifenacin Succinate (Vesicare) 5 MG) PO SCH (09:00)
[2019-01-27] MEDS: FERROUS SULFATE 325 MG TABLET.DR PO SCH (09:37)
[2019-01-27] MEDS: FAMOTIDINE/PF 20 MG/2 ML VIAL IV SCH (09:37)
[2019-01-27] MEDS: ALLOPURINOL 100 MG TABLET PO SCH (09:37)
[2019-01-27] MEDS: MEGESTROL 400 MG/10 ML UDCUP PO SCH (09:37)
[2019-01-27] MEDS: SERTRALINE HCL 50 MG TABLET PO SCH (09:37)
[2019-01-27] MEDS: ISOSORBIDE MONO 30MG TAB SR PO SCH (09:37)
[2019-01-27] MEDS: TERAZOSIN HCL 5 MG CAPSULE PO SCH (09:37)
[2019-01-27 11:00] VITALS: BP 81/51
--- NOTE | 2019-01-27 12:45 | NUR ---
Patient with BP 81/51, Asymptomatic. Maria Fernanda Evans NP notified. New orders received for midodrine 5mg TID. Patient BP unstable for transfer/discharge to [facility]. Will continue to monitor and assess patient.
[2019-01-27] MEDS: OSELTAMIVIR PHOSPHATE 300 MG, COMPOUNDING VEHICLE SF NO.9 50 ML PO SCH ×2 (13:23)
[2019-01-27] MEDS: MIDODRINE HCL 5 MG TABLET PO SCH ×2 (14:52→21:37)
[2019-01-27] MEDS: LEVOFLOXACIN 250 MG/D5W 50ML 50 ML IVPB SCH (14:52)
--- NOTE | 2019-01-27 14:52 | NUR ---
Midodrine given for low bp. Nurse to recheck b/p in 30 min-1hr. Patient in no distress. Alert and oriented. Responds to all questions.
[2019-01-27 16:00] VITALS: BP 97/53
--- NOTE | 2019-01-27 16:00 | NUR ---
Rechecked b/p 97/53.
[2019-01-27 19:15] VITALS: BP 97/63
[2019-01-27] MEDS: TRAZODONE HCL 100 MG TABLET PO SCH (21:37)
[2019-01-27] MEDS: DONEPEZIL HCL 5 MG TAB PO SCH (21:37)
[2019-01-27] MEDS: TAMSULOSIN HCL 0.4 MG CAP.ER.24H PO SCH (21:37)
[2019-01-27] MEDS: ATORVASTATIN CALCIUM 20 MG TABLET PO SCH (21:37)
[2019-01-28] VITALS (7 sets, daily range): BP systolic 71–135; BP diastolic 41–75
[2019-01-28] MEDS: SODIUM CHLORIDE 3% FOR INHALATION 4 ML/AMP VIAL.NEB IH SCH ×3 (06:19→19:12)
[2019-01-28] MEDS: INSULIN HUMULIN R 100 UNIT/ML 3ML SQ SCH ×4 (06:48→20:45)
[2019-01-28] MEDS: ***HM***(Solifenacin Succinate (Vesicare) 5 MG) PO SCH (09:00)
[2019-01-28] MEDS: MEGESTROL 400 MG/10 ML UDCUP PO SCH (09:42)
[2019-01-28] MEDS: ALLOPURINOL 100 MG TABLET PO SCH (09:43)
[2019-01-28] MEDS: FAMOTIDINE/PF 20 MG/2 ML VIAL IV SCH (09:43)
[2019-01-28] MEDS: FERROUS SULFATE 325 MG TABLET.DR PO SCH (09:43)
[2019-01-28] MEDS: ISOSORBIDE MONO 30MG TAB SR PO SCH (09:43)
[2019-01-28] MEDS: MIDODRINE HCL 5 MG TABLET PO SCH ×3 (09:43→20:45)
[2019-01-28] MEDS: SERTRALINE HCL 50 MG TABLET PO SCH (09:44)
[2019-01-28] MEDS: TERAZOSIN HCL 5 MG CAPSULE PO SCH (09:44)
[2019-01-28] MEDS: METOPROLOL TARTRATE 25 MG TAB PO SCH ×2 (09:44→20:44)
--- NOTE | 2019-01-28 17:00 | NUR ---
DC HELD. AUTH TO 2 PM / SPOEK TO [facility]; DC HELD FOR LOW BP, CALL TO VIRI AT [facility]; AUTH WILL TOMORROW AFTERNOON, NEED DC BY 2 PM . PLS CALL VIRI WHEN DC ORDER IS REC'D. PT WITH LOW BP, MEDS BEING ADJUSTED Addendum: 01/28/19 at 1909 by CARLOS REBOLLEDO RN CM Amended: Links added.
[2019-01-28] MEDS: ATORVASTATIN CALCIUM 20 MG TABLET PO SCH (20:45)
[2019-01-28] MEDS: DONEPEZIL HCL 5 MG TAB PO SCH (20:45)
[2019-01-28] MEDS: TRAZODONE HCL 100 MG TABLET PO SCH (20:45)
[2019-01-28] MEDS: TAMSULOSIN HCL 0.4 MG CAP.ER.24H PO SCH (20:45)
[2019-01-29] MEDS: SODIUM CHLORIDE 3% FOR INHALATION 4 ML/AMP VIAL.NEB IH SCH ×4 (01:13→19:12)
[2019-01-29 03:45] VITALS: BP 124/69
[2019-01-29] MEDS: INSULIN HUMULIN R 100 UNIT/ML 3ML SQ SCH ×3 (06:55→16:30)
[2019-01-29 07:34] VITALS: BP 130/75
[2019-01-29] MEDS: ***HM***(Solifenacin Succinate (Vesicare) 5 MG) PO SCH (09:00)
[2019-01-29] MEDS: FERROUS SULFATE 325 MG TABLET.DR PO SCH (09:29)
[2019-01-29] MEDS: ISOSORBIDE MONO 30MG TAB SR PO SCH (09:29)
[2019-01-29] MEDS: MEGESTROL 400 MG/10 ML UDCUP PO SCH (09:29)
[2019-01-29] MEDS: SERTRALINE HCL 50 MG TABLET PO SCH (09:30)
[2019-01-29] MEDS: METOPROLOL TARTRATE 25 MG TAB PO SCH (09:30)
[2019-01-29] MEDS: FAMOTIDINE/PF 20 MG/2 ML VIAL IV SCH (09:30)
[2019-01-29] MEDS: MIDODRINE HCL 5 MG TABLET PO SCH (09:32)
[2019-01-29] MEDS: ALLOPURINOL 100 MG TABLET PO SCH (09:32)
[2019-01-29] MEDS: TERAZOSIN HCL 5 MG CAPSULE PO SCH (09:32)
[2019-01-29 11:21] VITALS: BP 95/58
[2019-01-29] MEDS ORDERED: MIDODRINE HCL 5 MG TABLET ONE (12:42)
[2019-01-29] MEDS ORDERED: MIDODRINE HCL 5 MG TABLET PO SCH (14:00)
[2019-01-29] MEDS: LEVOFLOXACIN 250 MG/D5W 50ML 50 ML IVPB SCH (16:08)
[2019-01-29 16:43] VITALS: BP 90/54
[2019-01-29 19:07] VITALS: BP 92/59
--- NOTE | 2019-01-29 19:30 | NUR ---
DISCHARGE PATIENT GIVEN DISCHARGE INSTRUCTIONS VIA TEACH BACK. 22G PIV TO RIGHT FOREARM DISCONTINUED, TIP INTACT. TRANSPORTER FROM [facility] PRESENT TO TRANSFER PATIENT TO FACILITY. REPORT CALLED INTO ROGELIO FORREST. PATIENT STABLE AT THIS TIME.
== END 2019-01-29 19:45 | DRG 640 ==
LOC: EDH 10:30 → OBSVTOIN 14:45 → EDHIP 14:45 → 4CH 16:06
PROVIDERS: ADMIT Internal Medicine; ATTEND Internal Medicine
PROC: 5A1D70Z Performance of Urinary Filtration, Intermittent, Less than 6 Hours Per Day (ICD-10-PCS; principal; 2019-01-21)
PROC: 5A1D70Z Performance of Urinary Filtration, Intermittent, Less than 6 Hours Per Day (ICD-10-PCS; 2019-01-22)
PROC: 5A1D70Z Performance of Urinary Filtration, Intermittent, Less than 6 Hours Per Day (ICD-10-PCS; 2019-01-24)
PROC: 5A1D70Z Performance of Urinary Filtration, Intermittent, Less than 6 Hours Per Day (ICD-10-PCS; 2019-01-26)
PROC: 5A1D70Z Performance of Urinary Filtration, Intermittent, Less than 6 Hours Per Day (ICD-10-PCS; 2019-01-28)
DX: E87.5 Hyperkalemia (principal); N18.6 End stage renal disease; I12.0 Hypertensive chronic kidney disease with stage 5 chronic kidney disease or end stage renal disease; F10.239 Alcohol dependence with withdrawal, unspecified; E87.2 Acidosis; J10.1 Influenza due to other identified influenza virus with other respiratory manifestations; E87.70 Fluid overload, unspecified; E11.22 Type 2 diabetes mellitus with diabetic chronic kidney disease; E11.51 Type 2 diabetes mellitus with diabetic peripheral angiopathy without gangrene; D64.9 Anemia, unspecified; D72.819 Decreased white blood cell count, unspecified; E78.2 Mixed hyperlipidemia; E83.39 Other disorders of phosphorus metabolism; F03.90 Unspecified dementia, unspecified severity, without behavioral disturbance, psychotic disturbance, mood disturbance, and anxiety; H91.90 Unspecified hearing loss, unspecified ear; I25.10 Atherosclerotic heart disease of native coronary artery without angina pectoris; I44.0 Atrioventricular block, first degree; I45.10 Unspecified right bundle-branch block; I95.89 Other hypotension; N40.0 Benign prostatic hyperplasia without lower urinary tract symptoms; R29.6 Repeated falls; Z60.2 Problems related to living alone; W19.XXXA Unspecified fall, initial encounter; Z53.20 Procedure and treatment not carried out because of patient's decision for unspecified reasons; Z99.2 Dependence on renal dialysis; Y92.89 Other specified places as the place of occurrence of the external cause; Y99.8 Other external cause status; Y93.89 Activity, other specified; Z91.19 Patient's noncompliance with other medical treatment and regimen; Z91.15 Patient's noncompliance with renal dialysis; Z83.3 Family history of diabetes mellitus; Z82.5 Family history of asthma and other chronic lower respiratory diseases; Z82.49 Family history of ischemic heart disease and other diseases of the circulatory system; Z82.3 Family history of stroke; Z82.0 Family history of epilepsy and other diseases of the nervous system
CPT/HCPCS: 36415; 70450; 71045; 72125; 80048; 80053; 82140; 82550; 82948; 83036; 83915; 84100; 84484; 85025; 85027; 85610; 85730; 86704; 86706; 87340; 87486; 87520; 87581; 87633; 87798; 90935; 93005; 94640; 94664; 97039; G0378; J1815; J1956; J2060; J2405; J3490